=== PATIENT | female | born 1985 | race Caucasian/White ===

== ENCOUNTER 2024-09-09 10:17 | Emergency (ER) | payer OTHER, SELFPAY ==
[2024-09-09 10:20] VITALS: BP 131/73
[2024-09-09 10:34] VITALS: BP 142/93; BMI 29.6
[2024-09-09] MEDS: NSS 1000 IV (10:53)
[2024-09-09 11:00] VITALS: BP 119/83
--- NOTE | 2024-09-09 11:01 | ED.GENMED ---
History of Present Illness
General
Chief Complaint: Abdominal Pain
Source: patient
Exam Limitations: none
Time Seen by Provider: 09/09/24 10:27
History of Present Illness
History of Present Illness:
38yoF with no significant past medical history presenting for evaluation of vomiting, diarrhea, and abdominal pain. Symptoms began around 10 PM last night. She has vomited about 10x and had about 25 episodes of watery diarrhea since her symptoms
began. Patient also reports pain in the center of her abdomen which she describes as feeling like she was punched. Her pain seemed worse than a typical stomach bug so she decided to come to the ED. She denies any fevers, hematochezia, dysuria.
No known sick contacts, recent travel, suspicious food intake, or recent antibiotics. Previous abdominal surgeries include multiple C-sections.
Phy Exam
General Physical Exam
General Presentation: well appearing and no apparent distress
General age: appears stated age
General Skin: warm and dry
General Habitus: normal
General Mental: alert
ENT Exam
ENT Exam: normocephalic
Cardiovascular Exam
Cardiovascular Exam: regular rate/rhythm
Pulmonary Exam
Pulmonary Exam: no respiratory distress
Gastrointestinal Exam
Gastrointestinal Exam: soft, non distended and other (+Tenderness in the epigastric and periumbilical regions. Abdomen soft, non-distended. No rebound or guarding. )
Neurological Exam
Neurological Exam: alert
[place] Coma Scale
Eye Opening: Spontaneous
Verbal Response: Oriented
Motor Response: Obeys Commands
GCS Total Score: 15
Skin Exam
Skin Exam: normal color and warm/dry
Psychiatric Exam
Psychiatric Exam: normal mood/affect
Course
Orders/Labs/Results
Orders:
Orders
09/09/24 10:23
EKG [Electrocardiogram (*1)] Urgent
Reason for Study: Tachycardia
09/09/24 10:24
EKG- Treatment ONCE
09/09/24 10:33
Magnesium Sulfate 2 Gram/50 ml [Magnesium Sulfate] 2 gram in 50 ml IV NOW
Test Result ONCE
09/09/24 10:34
0.9% Sodium Chloride 1000 ml [Nss] 1,000 ml IV BOLUS
09/09/24 10:41
Complete Blood Count/With Diff Urgent
Comprehensive Metabolic Panel Urgent
HCG, Serum Qualitative Screen Urgent
Lipase Urgent
Magnesium Urgent
Urinalysis Reflex To Culture Urgent
Date Specimen was Collected: 09/09/24
Time Specimen was Collected: 10:40
Urine Microscopic Reflex Cult Urgent
Urine Culture Urgent
ANDREA Source: U
Specimen Description:
Date Specimen was Collected: 09/09/24
Time Specimen was Collected: 10:40
09/09/24 10:58
CT Abd/pelvis W Iv Cont Urgent
Comment:
Reason For Exam: Periumbilical pain, vomiting, diarrhea
09/09/24 13:28
Electrocardiogram (*1) Urgent
Reason for Study: QTc Monitoring
EKG- Treatment ONCE
Abnormal Lab Results
09/09/24
10:41
WBC 12.4 H 10^3/uL
(4.8-10.8)
RBC 5.60 H 10^6/uL
(4.20-5.40)
Absolute Neuts (auto) 11.6 H 10^3/uL
(1.4-6.5)
Absolute Lymphs (auto) 0.4 L 10^3/uL
(1.2-3.4)
Neutrophils % 93.8 H %
(42.2-75.2)
Lymphocytes % 3.5 L %
(20.5-51.1)
Carbon Dioxide 21 L mmol/L
(22-30)
BUN 18 H mg/dl
(7-17)
Glucose 146 H mg/dl
(70-99)
Magnesium 1.5 L mg/dl
(1.6-2.3)
Total Protein 8.6 H g/dl
(6.3-8.2)
Albumin 5.1 H g/dl
(3.5-5.0)
Urine Ketones Trace A
(Negative)
Ur Occult Blood Reflex Trace A
(Negative)
Urine RBC 3-6 A /HPF
(0-2)
Urine Bacteria (Reflex) Moderate A
(Negative)
09/09/24 10:41
09/09/24 10:41
Vital Signs
Initial and Last Documented VS:
Initial Vital Signs
Temp Pulse Resp BP Pulse Ox
98.2 F 138 16 131/73 98
09/09/24 10:20 09/09/24 10:20 09/09/24 10:20 09/09/24 10:20 09/09/24 10:20
Last Documented Vital Signs
Temp Pulse Resp BP Pulse Ox
98.2 F 115 13 112/85 100
09/09/24 10:20 09/09/24 14:10 09/09/24 13:45 09/09/24 14:10 09/09/24 13:45
MDM/Problems Addressed
Differential Diagnosis Includes:
38yoF here with vomiting, diarrhea, and abd pain that began last night. No fevers. No sick contacts or suspicious food intake. Patient is tachycardic to 138 in triage. Remainder of vital signs are stable. Patient is well-appearing in no acute
distress. No signs of peritonitis on abdominal exam. Differential diagnosis includes but is not limited to: Viral illness, gastroenteritis, pancreatitis, early appendicitis, dehydration
Initial ED plan: EKG obtained in triage which shows sinus tachycardia and prolonged QTc of 578. Check abdominal labs, magnesium, HCG, UA, and CT abdomen. Patient declines antiemetics. IV fluid bolus ordered.
*EKG
Interpreted by ED Provider?: Yes
EKG Intrepretation Date: 09/09/24
Heart Rate: 128
Rate: tachycardiac
Rhythm: sinus
[place]: normal axis
Interval: long QT (578)
Ischemia: non-specific ST changes
*Critical Care Note
Total Time (30-74mins, 75-104mins- exclusive of procedures): Not Applicable
Update Note
Update Note:
Labs reveal a leukocytosis with a white count of 12.4 which is likely reactive secondary to vomiting. Magnesium 1.5 which was replaced. Remainder of electrolytes are normal. Creatinine 0.8. Moderate bacteria present on urinalysis although there
are a large amount of epithelial cells suggesting contaminated sample. CT abdomen is negative for acute findings. Severe hepatic steatosis noted which patient was notified of. Patient feeling significantly improved on reassessment. No episodes
of vomiting or diarrhea throughout ED stay. Patient is able to tolerate p.o. intake. Repeat EKG obtained after magnesium replacement and QTc improved to 411. She is stable for discharge. Suspect viral gastroenteritis. Supportive care discussed.
Advised close follow-up with PCP and ED return precautions discussed. Patient in agreement with plan and was discharged in stable condition.
ED Attending Note
-
Portions of this chart may have been created with voice recognition software.� Occasional wrong word or��sound alike� substitutions may have occurred due to the inherent limitations of voice recognition software.
Discharge Plan
Departure
Patient Disposition: Home (Routine Discharge)
Date of Disposition: 09/09/24
Time of Disposition: 13:51
Patient with high blood pressure during this ER visit?: No
Discharge Problem:
Nausea, vomiting, and diarrhea
Instructions: Viral gastroenteritis in adults
Prescriptions:
No Action
Vitamins Tablet
1 tab PO DAILY
ferrous sulfate [FeroSul] 325 MG tablet
325 mg PO BID Qty: 120 0RF
ibuprofen 600 MG tablet
600 mg PO Q4HPRN PRN (Reason: cramps) Qty: 90 0RF
Referrals:
Monserrat Hayes CRNP [Family Provider] -
Activity Restrictions/Additional Instructions:
Drink plenty of fluids and rest. Eat a bland diet (bananas, rice, applesauce, toast) and advance diet as tolerated.
Please follow-up with your family doctor for the fatty liver seen on your CT scan. Return to the ER with any worsening symptoms or if you are unable to keep down liquids.
Interventions
Interventions:
*Risk Screen - Suicide Last Done: 09/09/24 10:20
*General Assessment Last Done: 09/09/24 10:20
*Neglect/Abuse Screening Last Done: 09/09/24 10:20
ED- Fall Risk Assessment Last Done: 09/09/24 10:35
*ED COVID-19 Vaccine History Last Done: 09/09/24 10:35
*Nursing Disposition Last Done: 09/09/24 14:10
EJ-[id number]-[id number] Assessment Last Done: 09/09/24 10:36
Discharge Date and Time
Discharge Date/Time: 09/09/24 14:10
Print Language: FAROESE
[2024-09-09 11:02] LABS: % Basophils 0.3 % (0-2); % Immature Granulocytes 0.3 % (0-0.5); % Lymphocytes 3.5 % (20.5-51.1); % Monocytes 2.1 % (1.7-9.3); % Neutrophils 93.8 % (42.2-75.2); Absolute Lymphocytes 0.4 10^3/uL (1.2-3.4); Absolute Monocytes 0.3 10^3/uL (0.1-0.6); Absolute Neutrophils 11.6 10^3/uL (1.4-6.5); Hematocrit 45.9 % (37.0-47.0); Hemoglobin 15.6 g/dL (12.0-16.0); Mean Corpuscular Hgb 27.9 pg (27.0-31.0); Mean Platelet Volume 8.3 fL (7.4-10.4); Nucleated Red Blood Cells % 0 %; Platelet Count 271 10^3/uL (130-400); Red Cell Dist. Width 12.4 % (11.5-14.5); White Blood Cell Count 12.4 10^3/uL (4.8-10.8)
[2024-09-09] MEDS: MAGNESIUM SULFATE 50 IV (11:09)
[2024-09-09 11:12] LABS: HCG, Serum Qualitative Screen Negative
[2024-09-09 11:15] LABS: ALT (SGPT) 17 U/L (0-35); AST (SGOT) 23 U/L (14-36); Albumin 5.1 g/dl (3.5-5.0); Alkaline Phosphatase 70 U/L (38-126); Blood Urea Nitrogen 18 mg/dl (7-17); Carbon Dioxide 21 mmol/L (22-30); Chloride 100 mmol/L (98-107); Estimated Creatinine Clearance 94 ml/min; Glucose 146 mg/dl (70-99); Lipase 51 U/L (23-300); Magnesium 1.5 mg/dl (1.6-2.3); Potassium 4.6 mmol/L (3.5-5.1); Sodium 137 mmol/L (135-145); Total Bilirubin 1.1 mg/dl (0.2-1.3); Total Protein 8.6 g/dl (6.3-8.2); eGFR > 60.00
[2024-09-09 12:00] VITALS: BP 113/73
[2024-09-09 12:00] LABS: Urine Albumin Trace (Neg - Trace); Urine Bilirubin Negative (Negative); Urine Character Clear (Clear); Urine Color Yellow; Urine Glucose Negative (Negative); Urine Ketone Trace (Negative); Urine Leukocyte Negative (Negative); Urine Nitrite Negative (Negative); Urine Occult Blood Trace (Negative); Urine Specific Gravity 1.025 (<1.030); Urine Urobilinogen Negative (Neg - 1+)
[2024-09-09 12:18] LABS: Urine Mucus Many; Urine Squamous Cell >30 /LPF (Few)
[2024-09-09 12:20] LABS: Urine Bacteria Moderate (Negative)
[2024-09-09 14:10] VITALS: BP 112/85
== END 2024-09-09 14:10 | disposition home or self-care (01) ==
LOC: EMR 10:17
PROVIDERS: EMERGENCY PHYSICIAN Emergency Medicine; FAMILY PHYSICIAN Nurse Practitioner
DX: R10.9 Unspecified abdominal pain (principal); R11.2 Nausea with vomiting, unspecified; R19.7 Diarrhea, unspecified
CPT/HCPCS: 99284; 96365; 74177; 80053; 81003; 81015; 83690; 83735; 84703; 85025; 87086; 93005; Q9967